=== PATIENT | female | born 1965 | race Caucasian/White ===

== ENCOUNTER 2017-01-18 12:27 | Day surgery (SDC) | payer OTHER ==
[~2017-01-18] VITALS: Ht 180.3 cm; Wt 121.1 kg
[~2017-01-18 12:27] MED LIST: ACIPHEX20 MG PO; ADVAIR 100/501 DISK IH; ADVAIR 250/501 DISK IH; ALBUTEROL17 GM IH; APRISO0.375 GM PO; ASACOL400 MG PO; AUGMENTIN875 MG PO; AVENTYL,PAMELOR25 MG PO; AVENTYL,PAMELOR50 MG PO; Augmentin PO; BENTYL10 MG PO; CALCIUM 600 WI1 EAC1 PO; CALCIUM600 MG PO; CATAPRES0.1 MG G-TUBE; CELEBREX200 MG PO; CHOLESTYRAMINE P4 GM PO; CLONAZEPAM0.5 MG PO; Calcium Carbonate,Ca PO; DIOVAN320 MG PO; EFFEXOR XR150 MG PO; ENDOCET 5-3251 EACH PO; ENTOCORT EC3 MG PO; EVISTA60 MG PO; Effexor XR PO; FUROSEMIDE40 MG PO; Flora-Q,Risaquad PO; GABAPENTIN300 MG PO; GLIPIZIDE XL10 M1 PO; GLIPIZIDE XL10 MG PO; GLIPIZIDE10 MG PO; GLUCOPHAGE500 MG PO; GLUCOTROL XL10 MG PO; GLUCOTROL XL5 MG PO; Glucophage PO; HUMIRA40 MG/0.1 SC; HUMIRA40 MG/0.8 SQ; HUMULIN 70100 UNIT/2 SQ; HUMULIN 70100 UNITS/ SQ; HYOSCYAMINE0.375 MG PO; IMURAN50 MG PO; JANUVIA100 MG PO; K-DUR20 MEQ PO; K-Dur PO; KLOR-CON M2020 MEQ PO; LASIX40 MG PO; LEVEMIR FL100 UNIT/1 SC; LEVEMIR FL100 UNITS/ SC; LEVOXYL50 MCG PO; LYRICA25 MG PO; Lasix PO; MAG-OX400 M1 PO; MAGNESIUM500 MG PO; METFORMIN HCL500 M1 PO; METFORMIN HCL500 MG PO; MONTELUKAST SOD10 MG PO; MORPHINE SULFAT15 M1 PO; MS CONTIN,ORAMO15 M1 PO; MS CONTIN,ORAMO15 M2 PO; MS Contin,Oramorph S PO; NEURONTIN300 MG PO; NEURONTIN400 MG PO; NEXIUM40 MG PO; NORTRIPTYLINE H50 MG PO; NORVASC10 MG PO; NORVASC5 MG PO; Neurontin PO; Norvasc PO; OXYCODONE HCL10 MG PO; PAXIL CR37.5 MG PO; PENTASA; PENTASA250 MG PO; PENTASA500 MG PO; PERCOCET 10/1 TABLET PO; PLENDIL5 M1 PO; POTASSIUM CHLO20 ME1 PO; PRAVACHOL40 MG PO; PRAVASTATIN SOD40 MG PO; PREDNISONE; PRILOSEC40 MG PO; PROAIR HFA8.5 GM IH; PROVENTIL17 GM IH; Pentasa PO; Pravachol PO; Proventil,Ventolin H IH; SINGULAIR10 MG PO; Singulair PO; Tums PO; VENLAFAXINE HC150 M1 PO; VENLAFAXINE HC150 MG PO; VENTOLIN HFA18 GM IH; VITAMIN D2000 INTUN PO; VITAMIN D31000 UNI2 PO; VITAMIN D31000 UNIT PO; Vitamin D PO; WELCHOL625 MG PO; XIFAXAN550 MG PO; ZANAFLEX2 M1 PO; ZIAC 2.5/6.251 TAB PO; ZITHROMAX Z-PA250 MG PO
[2017-01-18 13:03] LABS: POINT-OF-CARE METER ID UU14174212
== END 2017-01-18 13:54 | disposition home or self-care (01) ==
LOC: PAIN 12:27 → CATH 13:00 → PAIN 13:00
PROVIDERS: Anesthesiology Pain Medicine
PROC: 3E0S33Z Introduction of Anti-inflammatory into Epidural Space, Percutaneous Approach (ICD-10-PCS; principal; 2017-01-18)
DX: M54.16 Radiculopathy, lumbar region (principal); F41.9 Anxiety disorder, unspecified; M48.08 Spinal stenosis, sacral and sacrococcygeal region; M51.26 Other intervertebral disc displacement, lumbar region; F17.200 Nicotine dependence, unspecified, uncomplicated; M79.1 Myalgia; E11.42 Type 2 diabetes mellitus with diabetic polyneuropathy; K21.9 Gastro-esophageal reflux disease without esophagitis; M17.10 Unilateral primary osteoarthritis, unspecified knee; I10 Essential (primary) hypertension; K50.90 Crohn's disease, unspecified, without complications; Z79.4 Long term (current) use of insulin; Z79.899 Other long term (current) drug therapy; Z88.8 Allergy status to other drugs, medicaments and biological substances; Z91.09 Other allergy status, other than to drugs and biological substances
CPT/HCPCS: 82948; J1100; J2250; J3010

== ENCOUNTER 2017-02-15 08:33 | Day surgery (SDC) | payer OTHER ==
[~2017-02-15] VITALS: Ht 180.3 cm; Wt 125.1 kg
[2017-02-15 09:23] LABS: POINT-OF-CARE METER ID UU14174212
== END 2017-02-15 10:05 | disposition home or self-care (01) ==
LOC: PAIN 08:33 → SDC 09:15 → PAIN 10:05
PROVIDERS: Anesthesiology Pain Medicine
DX: M47.26 Other spondylosis with radiculopathy, lumbar region (principal); M51.16 Intervertebral disc disorders with radiculopathy, lumbar region; M54.5 Low back pain; E11.40 Type 2 diabetes mellitus with diabetic neuropathy, unspecified; M79.1 Myalgia; F41.9 Anxiety disorder, unspecified; K21.9 Gastro-esophageal reflux disease without esophagitis; I10 Essential (primary) hypertension; E66.9 Obesity, unspecified; F17.210 Nicotine dependence, cigarettes, uncomplicated; Z79.4 Long term (current) use of insulin; Z79.891 Long term (current) use of opiate analgesic; Z79.84 Long term (current) use of oral hypoglycemic drugs; Z79.899 Other long term (current) drug therapy; Z68.38 Body mass index [BMI] 38.0-38.9, adult
CPT/HCPCS: 82948; J1100; J2250; J3010

== ENCOUNTER 2017-06-25 10:27 | Day surgery (SDC) | payer OTHER ==
[~2017-06-25] VITALS: Ht 177.8 cm; Wt 118.3 kg
[2017-06-25 10:51] LABS: POINT-OF-CARE METER ID UU14174212
== END 2017-06-25 12:28 | disposition home or self-care (01) ==
LOC: PAIN 10:27 → SDC 11:00 → PAIN 11:00
PROVIDERS: Anesthesiology Pain Medicine
DX: M16.0 Bilateral primary osteoarthritis of hip (principal); M51.16 Intervertebral disc disorders with radiculopathy, lumbar region; M79.1 Myalgia; M48.061 Spinal stenosis, lumbar region without neurogenic claudication; M17.0 Bilateral primary osteoarthritis of knee; I10 Essential (primary) hypertension; E11.9 Type 2 diabetes mellitus without complications; K21.9 Gastro-esophageal reflux disease without esophagitis; J45.909 Unspecified asthma, uncomplicated; K50.90 Crohn's disease, unspecified, without complications; E66.9 Obesity, unspecified; Z68.37 Body mass index [BMI] 37.0-37.9, adult; F17.200 Nicotine dependence, unspecified, uncomplicated; Z79.4 Long term (current) use of insulin; Z79.891 Long term (current) use of opiate analgesic
CPT/HCPCS: 82948; J1030; J2250; J3010; S0020

== ENCOUNTER 2017-08-31 20:22 | Inpatient (IN) | payer OTHER ==
[~2017-08-31] VITALS: Ht 180.3 cm; Wt 118.3 kg
[2017-08-31 21:01] LABS: BASOPHIL (%) 1.1 % (0-1); BASOPHIL COUNT 0.1 K/uL (0-0.1); EOSINOPHIL (%) 0.9 % (0-5); EOSINOPHIL COUNT 0.1 K/uL (0-0.3); HEMATOCRIT 41.4 % (36.0-46.0); HEMOGLOBIN 13.8 G/DL (11.9-15.5); IMMATURE GRANULOCYTE (%) 0.5 % (0.0-0.7); LYMPHOCYTE (%) 24.8 % (15-42); LYMPHOCYTE COUNT 2.8 K/uL (1.0-2.8); MCH 28.5 PG (29.0-34.0); MCHC 33.3 G/DL (30.0-36.0); MCV 85.5 FL (83-99); MONOCYTE (%) 5.7 % (3-12); MONOCYTE COUNT 0.6 K/uL (0-0.8); NEUTROPHIL COUNT 7.5 K/uL (1.8-6.4); PLATELET COUNT 350 K/uL (156-360); RBC DIS.WIDTH-CV 13.7 % (11.8-14.6); RBC DIS.WIDTH-SD 42.5 % (39-53); RED BLOOD COUNT 4.84 M/uL (3.80-5.20); WHITE BLOOD COUNT 11.1 K/uL (4.1-10.2)
[2017-08-31 21:07] LABS: ALBUMIN 3.9 g/dL (3.2-4.8); CHLORIDE 104 mEq/L (99-109); POTASSIUM 3.1 mEq/L (3.7-5.4); SODIUM 139 mEq/L (136-147)
[2017-08-31 21:10] LABS: GLUCOSE 246 mg/dL (70-99); TOTAL PROTEIN 8.6 g/dL (6.4-8.3)
[2017-08-31 21:12] LABS: TOTAL BILIRUBIN 0.6 mg/dL (0.0-1.0)
[2017-08-31 21:13] LABS: ALKALINE PHOSPHATASE 102 IU/L (3-129); GFR ESTIMATE (CALCULATED) > 59 mL/min/
[2017-08-31 21:15] LABS: AST (GOT) 18 IU/L (2-34); DIRECT BILIRUBIN 0.3 mg/dL (0.0-0.3); UREA NITROGEN (BUN) 8 mg/dL (9-23)
[2017-08-31 21:16] LABS: ALT (GPT) 11 IU/L (3-49)
[2017-08-31 21:17] LABS: LIPASE 46 U/L (1.0-51.0)
[2017-08-31 22:50] LABS: APPEARANCE CLEAR ((CLEAR)); BILIRUBIN NEGATIVE; BLOOD NEGATIVE; COLOR YELLOW ((YELLOW)); GLUCOSE (STRIP) >=500; KETONES NEGATIVE; LEUKOCYTES LARGE; NITRITE NEGATIVE; PROTEIN (STRIP) NEGATIVE; SPECIFIC GRAVITY 1.039 (1.000-1.030); UROBILINOGEN 0.2 MG/DL (0.2-1.0)
[2017-08-31 22:55] LABS: BACTERIA RARE /HPF; EPITHELIAL CELLS RARE /HPF; MUCUS TRACE /LPF
[2017-08-31] MEDS ORDERED: METFORMIN HCL1000 MG PO (23:31)
[2017-08-31] MEDS ORDERED: OXYCODONE-APAP1 EACH PO (23:32)
[2017-08-31] MEDS ORDERED: DESYREL100 MG PO (23:32)
[2017-08-31] MEDS ORDERED: JARDIANCE25 MG PO (23:32)
[2017-08-31] MEDS ORDERED: FELODIPINE ER5 MG PO (23:34)
[2017-08-31] MEDS ORDERED: ESOMEPRAZOLE MA40 MG PO (23:37)
[2017-08-31] MEDS ORDERED: DICYCLOMINE HCL10 MG PO (23:37)
[2017-08-31] MEDS ORDERED: AZATHIOPRINE50 MG PO (23:38)
[2017-08-31] MEDS ORDERED: PRAVASTATIN SOD40 MG PO (23:39)
[2017-08-31] MEDS ORDERED: MONTELUKAST SOD10 MG PO (23:39)
[2017-08-31] MEDS ORDERED: HUMIRA40 MG/0.8 SC (23:40)
[2017-08-31] MEDS ORDERED: VALSARTAN320 MG PO (23:41)
[2017-08-31] MEDS ORDERED: VENLAFAXINE HC150 M1 PO (23:41)
[2017-08-31] MEDS ORDERED: AVENTYL,PAMELOR50 MG PO (23:49)
[2017-08-31] MEDS ORDERED: GABAPENTIN400 MG PO (23:51)
[2017-08-31] MEDS ORDERED: POTASSIUM CHLO20 ME1 PO (23:52)
[2017-08-31] MEDS ORDERED: VENLAFAXINE HCL75 M3 PO (23:53)
[2017-08-31] MEDS ORDERED: VICTOZA0.6 MG/0.1 SC (23:53)
[2017-09-01 04:12] VITALS: BP 129/83
[2017-09-01 07:08] VITALS: BP 123/66
[2017-09-01 08:28] LABS: Estimated Average Glucose 223 mg/dL (70-123); HEMOGLOBIN A1c (GLYCOHEMOGLOB) 9.4 % HGB (Below 5.7)
[2017-09-01 11:42] VITALS: BP 118/63
[2017-09-01 19:06] VITALS: BP 115/65
[2017-09-01 23:25] VITALS: BP 113/59
[2017-09-02 03:15] VITALS: BP 111/61
[2017-09-02 07:06] LABS: HEMATOCRIT 36.5 % (36.0-46.0); MCH 28.2 PG (29.0-34.0); MCHC 31.8 G/DL (30.0-36.0); MCV 88.6 FL (83-99); PLATELET COUNT 284 K/uL (156-360); RBC DIS.WIDTH-CV 13.9 % (11.8-14.6); RBC DIS.WIDTH-SD 44.9 % (39-53); RED BLOOD COUNT 4.12 M/uL (3.80-5.20); WHITE BLOOD COUNT 7.9 K/uL (4.1-10.2)
[2017-09-02 07:07] LABS: HEMOGLOBIN 11.6 G/DL (11.9-15.5)
[2017-09-02 07:37] LABS: CHLORIDE 106 MEQ/L (99-109); CREATININE 0.9 MG/DL (0.6-1.3); GFR ESTIMATE (CALCULATED) > 59 mL/min/; GLUCOSE 230 mg/dL (70-99); POTASSIUM 3.4 MEQ/L (3.7-5.4); SODIUM 146 MEQ/L (136-147); UREA NITROGEN (BUN) 15 mg/dL (9-23)
[2017-09-02 08:57] VITALS: BP 114/56
[2017-09-02 10:19] LABS: ERTH.SED.RATE 26 MM/HR (0-30)
[2017-09-02 11:14] LABS: MAGNESIUM 1.1 mg/dl (1.3-2.7)
[2017-09-02 15:46] VITALS: BP 134/66
[2017-09-02 23:36] VITALS: BP 114/56
[2017-09-03 06:32] LABS: HEMATOCRIT 38.1 % (36.0-46.0); HEMOGLOBIN 12.2 G/DL (11.9-15.5); MCH 28.6 PG (29.0-34.0); MCV 89.2 FL (83-99); PLATELET COUNT 252 K/uL (156-360); RBC DIS.WIDTH-CV 14.3 % (11.8-14.6); RBC DIS.WIDTH-SD 46.4 % (39-53); RED BLOOD COUNT 4.27 M/uL (3.80-5.20)
[2017-09-03 06:59] LABS: ALBUMIN 3.4 G/DL (3.2-4.8); CHLORIDE 107 MEQ/L (99-109); CREATININE 0.7 MG/DL (0.6-1.3); GFR ESTIMATE (CALCULATED) > 59 mL/min/; GLUCOSE 271 mg/dL (70-99); PHOSPHORUS 4.8 mg/dL (2.5-4.9); SODIUM 146 MEQ/L (136-147)
[2017-09-03 07:05] LABS: POTASSIUM 4.4 MEQ/L (3.7-5.4); UREA NITROGEN (BUN) 24 mg/dL (9-23)
[2017-09-03 07:31] VITALS: BP 114/59
[2017-09-03 15:20] VITALS: BP 133/68
[2017-09-04 00:04] VITALS: BP 119/62
[2017-09-04 06:52] LABS: HEMATOCRIT 38.6 % (36.0-46.0); HEMOGLOBIN 12.5 G/DL (11.9-15.5); MCH 28.4 PG (29.0-34.0); MCHC 32.4 G/DL (30.0-36.0); MCV 87.7 FL (83-99); PLATELET COUNT 244 K/uL (156-360); RBC DIS.WIDTH-CV 13.8 % (11.8-14.6); RBC DIS.WIDTH-SD 44.3 % (39-53); WHITE BLOOD COUNT 8.9 K/uL (4.1-10.2)
[2017-09-04 07:19] LABS: CHLORIDE 101 MEQ/L (99-109); CREATININE 0.8 MG/DL (0.6-1.3); GFR ESTIMATE (CALCULATED) > 59 mL/min/; GLUCOSE 268 mg/dL (70-99); MAGNESIUM 2.5 mg/dl (1.3-2.7); SODIUM 138 MEQ/L (136-147); UREA NITROGEN (BUN) 21 mg/dL (9-23)
[2017-09-04 15:21] VITALS: BP 144/79
[2017-09-04 23:39] VITALS: BP 115/63
[2017-09-05 06:26] LABS: BASOPHIL (%) 0.1 % (0-1); EOSINOPHIL (%) 0.1 % (0-5); HEMATOCRIT 38.1 % (36.0-46.0); HEMOGLOBIN 12.6 G/DL (11.9-15.5); IMMATURE GRANULOCYTE (%) 0.9 % (0.0-0.7); LYMPHOCYTE (%) 8.3 % (15-42); LYMPHOCYTE COUNT 0.8 K/uL (1.0-2.8); MCH 28.7 PG (29.0-34.0); MCHC 33.1 G/DL (30.0-36.0); MCV 86.8 FL (83-99); MONOCYTE (%) 4.7 % (3-12); MONOCYTE COUNT 0.4 K/uL (0-0.8); NEUTROPHIL (%) 85.9 % (45-76); PLATELET COUNT 239 K/uL (156-360); RBC DIS.WIDTH-CV 13.5 % (11.8-14.6); RBC DIS.WIDTH-SD 42.5 % (39-53); RED BLOOD COUNT 4.39 M/uL (3.80-5.20); WHITE BLOOD COUNT 9.3 K/uL (4.1-10.2)
[2017-09-05 06:45] LABS: ALBUMIN 3.2 G/DL (3.2-4.8); ALKALINE PHOSPHATASE 65 IU/L (3-129); ALT (GPT) 8 IU/L (3-49); AST (GOT) 12 IU/L (2-34); CHLORIDE 102 MEQ/L (99-109); CREATININE 0.7 MG/DL (0.6-1.3); GFR ESTIMATE (CALCULATED) > 59 mL/min/; GLUCOSE 318 mg/dL (70-99); POTASSIUM 4.3 MEQ/L (3.7-5.4); SODIUM 136 MEQ/L (136-147); TOTAL BILIRUBIN 0.6 MG/DL (0.0-1.0); TOTAL PROTEIN 6.3 G/DL (6.4-8.3); UREA NITROGEN (BUN) 22 mg/dL (9-23)
[2017-09-05 07:33] VITALS: BP 131/75
[2017-09-05] MEDS ORDERED: FLAGYL500 MG PO (11:28)
[2017-09-05] MEDS ORDERED: PREDNISONE20 MG PO (11:28)
[2017-09-05] MEDS ORDERED: CIPRO500 MG PO (11:28)
[2017-09-05] MEDS ORDERED: NOVOLOG 10100 UNITS/ SC (13:26)
[2017-09-05] MEDS ORDERED: LEVEMIR100 UNIT/2 SC (13:26)
== END 2017-09-05 15:12 | disposition home or self-care (01) | DRG 386 ==
LOC: EME 20:22 → EDOF 09-01 00:43 → ENRESERV 09-01 00:44 → 2EAST 09-01 04:07
PROVIDERS: Hospitalist; Physician Assistant
DX: K50.012 Crohn's disease of small intestine with intestinal obstruction (principal); E11.65 Type 2 diabetes mellitus with hyperglycemia; E78.5 Hyperlipidemia, unspecified; E83.42 Hypomagnesemia; E83.51 Hypocalcemia; E86.0 Dehydration; E87.6 Hypokalemia; G40.909 Epilepsy, unspecified, not intractable, without status epilepticus; G43.909 Migraine, unspecified, not intractable, without status migrainosus; G89.29 Other chronic pain; M79.7 Fibromyalgia; I10 Essential (primary) hypertension; M25.569 Pain in unspecified knee; J45.909 Unspecified asthma, uncomplicated; D64.9 Anemia, unspecified; F41.9 Anxiety disorder, unspecified; F32.9 Major depressive disorder, single episode, unspecified; E66.9 Obesity, unspecified; F17.210 Nicotine dependence, cigarettes, uncomplicated; Z68.36 Body mass index [BMI] 36.0-36.9, adult; Z96.1 Presence of intraocular lens; Z98.41 Cataract extraction status, right eye; Z79.4 Long term (current) use of insulin; Z98.42 Cataract extraction status, left eye
CPT/HCPCS: 71010; 74018; 74177; 80048; 80053; 80069; 80076; 81003; 82565; 82948; 83036; 83605; 83690; 83735; 84520; 85025; 85027; 85651; 87493; 87506; 90686; 99281; 99285; C9113; J0500; J0744; J1170; J1644; J1815; J2060; J2270; J2405; J2765; J2920; J2930; J3010; J3475; J3480; J7030; J7050; S0028; S0030

== ENCOUNTER 2018-02-28 08:39 | Day surgery (SDC) | payer OTHER ==
[~2018-02-28] VITALS: Ht 180.3 cm; Wt 116.6 kg
[~2018-02-28 08:39] MED LIST changes: +AZATHIOPRINE50 MG PO; +CIPRO500 MG PO; +DESYREL100 MG PO; +DICYCLOMINE HCL10 MG PO; +EFFEXOR75 MG PO; +ESOMEPRAZOLE MA40 MG PO; +FELODIPINE ER5 MG PO; +FLAGYL500 MG PO; +GABAPENTIN400 MG PO; +GLUCOPHAGE1000 MG PO; +GLUCOTROL10 MG PO; +HUMIRA CRO40 MG/0.8 SC; +HUMIRA40 MG/0.8 SC; +JARDIANCE25 MG PO; +LEVEMIR100 UNIT/2 SC; +METFORMIN HCL1000 MG PO; +NOVOLOG 10100 UNITS/ SC; +OXYCODONE-APAP1 EACH PO; +PREDNISONE20 MG PO; +VALSARTAN320 MG PO; +VENLAFAXINE HCL75 M3 PO; +VICTOZA0.6 MG/0.1 SC
[2018-02-28 10:53] LABS: CHLORIDE 103 MEQ/L (99-109); CREATININE 0.7 MG/DL (0.6-1.3); GFR ESTIMATE (CALCULATED) > 59 mL/min/; GLUCOSE 116 mg/dL (70-99); POTASSIUM 4.4 MEQ/L (3.7-5.4); SODIUM 137 MEQ/L (136-147); UREA NITROGEN (BUN) 9 mg/dL (9-23)
== END 2018-02-28 11:10 | disposition home or self-care (01) ==
LOC: PAIN 08:39 → SDC 10:00 → PAIN 10:00
PROVIDERS: Anesthesiology; Anesthesiology Pain Medicine
DX: M16.0 Bilateral primary osteoarthritis of hip (principal); M48.061 Spinal stenosis, lumbar region without neurogenic claudication; M17.0 Bilateral primary osteoarthritis of knee; M54.16 Radiculopathy, lumbar region; I10 Essential (primary) hypertension; E11.9 Type 2 diabetes mellitus without complications; K21.9 Gastro-esophageal reflux disease without esophagitis; F41.9 Anxiety disorder, unspecified; E66.3 Overweight; Z68.35 Body mass index [BMI] 35.0-35.9, adult; Z79.891 Long term (current) use of opiate analgesic; Z79.4 Long term (current) use of insulin; F17.210 Nicotine dependence, cigarettes, uncomplicated; Z88.8 Allergy status to other drugs, medicaments and biological substances; Z91.040 Latex allergy status
CPT/HCPCS: 80048; 82948; 93005; J1030; J2250; S0020

== ENCOUNTER 2018-04-15 10:52 | Day surgery (SDC) | payer OTHER ==
[~2018-04-15] VITALS: Ht 180.3 cm; Wt 116.6 kg
[~2018-04-15 10:52] MED LIST changes: +COZAAR100 MG PO
== END 2018-04-15 13:40 | disposition home or self-care (01) ==
LOC: PAIN 10:52 → SDC 11:45 → PAIN 13:40
PROVIDERS: Anesthesiology Pain Medicine
DX: M54.16 Radiculopathy, lumbar region (principal); M51.26 Other intervertebral disc displacement, lumbar region; M51.36 Other intervertebral disc degeneration, lumbar region; Z79.891 Long term (current) use of opiate analgesic; F17.200 Nicotine dependence, unspecified, uncomplicated; E11.9 Type 2 diabetes mellitus without complications; I10 Essential (primary) hypertension; K50.919 Crohn's disease, unspecified, with unspecified complications; Z79.899 Other long term (current) drug therapy
CPT/HCPCS: 82948; J1100; J2250; J3010